=== PATIENT | male | born 1990 | race African-American/Black ===

== ENCOUNTER 2020-05-08 03:32 | Emergency (ER) | payer SELFPAY ==
[~2020-05-08] VITALS: Ht 188 cm; Wt 86.2 kg
--- NOTE | 2020-05-08 03:53 | Emergency Room Report ---
History of Present Illness General Chief Complaint: Medical Clearance Source: Patient Present Illness HPI The patient presents complaining of fentanyl withdrawal. He says he has been vomiting for 2 to 3 days. He is occasionally vomited up some bloody material without coffee grounds. Initially it was bilious. He denies any fevers or chills. He complains of 10/10 pain in his stomach. He says he has had normal bowel movements until today there was some diarrhea which was brown in color and not melanotic. He complains about generalized pain that is 5/10 at this time. He also has some epigastric discomfort that similar. The epigastric discomfort does not radiate. Not having access to his opiates the patient feels anxious. He states he uses about a gram a day. He last used 5 days ago. Patient denies exposure to Covid positive contacts however he is incarcerated at this time. No sore throat, chest pain, palpitations, shortness of breath, rashes, visual changes, dizziness, headache. Patient has a history of hepatitis C. Patient denies HIV. Allergies: Coded Allergies: No Known Allergies (Unverified , 05/08/20) COVID-19 Screening Contact w/high risk pt: No Experienced COVID-19 symptoms?: No COVID-19 Testing performed CONTACT CENTER REPRESENTATIVE: No Patient History Past Medical History: see triage record, other - hep c Social History: Reports: drug use - Fentanyl Social History Narrative Incarcerated Reviewed Nursing Documentation: PMH: Agreed; PSxH: Agreed Nursing Documentation-PM Past Medical History: No Stated History Physical Exam Vital Signs Date Time Temp Pulse Resp B/P (MAP) Pulse Ox O2 Delivery O2 Flow Rate FiO2 05/08/20 03:34 98.4 96 20 139/86 (103) 98 Room Air Medical Decision Making Diagnostic Impression: Primary Impression: Opiate withdrawal Additional Impression: Gastritis Qualified Codes: K29.01 - Acute gastritis with bleeding ER Course Patient presents with 3 days of vomiting and epigastric pain complaining of fentanyl withdrawal. Differential includes opiate withdrawal, gastritis, esophageal varices, peptic ulcer disease, Leola-Osei tear amongst others. Patient's vital signs are stable at this time. Patient's vital signs also do not support the use of clonidine. Skin color is good and laboratory is not essential at this time. Patient will be treated symptomatically with Phenergan IM, Pepcid p.o. and Tylenol with codeine p.o. Discussed with patient we are unable to prescribe or give Suboxone. Patient understands this. He is appearing to for charge tomorrow and the potential is to take him to the [facility]. Patient tolerated medication and was improved without vomiting. Patient stable for outpatient observation and treatment as well as incarceration. Last Vital Signs Date Time Temp Pulse Resp B/P (MAP) Pulse Ox O2 Delivery O2 Flow Rate FiO2 05/08/20 04:20 98.4 20 139/86 98 Room Air 05/08/20 04:00 96 Status: improved Disposition: LAW ENFORCEMENT IN [facility]UST Condition: Improved Scripts Acetaminophen (Tylenol) 325 Mg Tablet 650 MG ORAL Q6H PRN for Prn Pain/Headache/Temp > 101, #20 TAB 0 Refills Prov: Slade Sales MD 05/08/20 Naloxone HCl (Narcan) 4 Mg [place] 4 MG NS NEEDED, #1 SPRAY Prov: Slade Sales MD 05/08/20 Hydroxyzine Pamoate (VISTARIL) 25 Mg Capsule 25 MG PO Q8HR, #10 CAP Prov: Slade Sales MD 05/08/20 Famotidine* (Pepcid 20mg tablet*) 20 Mg Tablet 20 MG ORAL DAILY for Gerd, #14 TAB 0 Refills Prov: Slade Sales MD 05/08/20 Ondansetron Odt* (ZOFRAN ODT*) 4 Mg Tab.rapdis 4 MG BC EVERY 8 HOURS, #10 TAB 0 Refills Prov: Slade Sales MD 05/08/20 Referrals: NOT CHOSEN IPA/,REFERRING (PCP) Slade Sales MD May 08, 2020 03:53
[2020-05-08] MEDS ORDERED: FAMOTIDINE20 MG ORAL (03:57)
[2020-05-08] MEDS ORDERED: NARCAN4 MG NS (03:57)
[2020-05-08] MEDS ORDERED: TYLENOL325 MG ORAL (03:57)
[2020-05-08] MEDS ORDERED: ONDANSETRON ODT4 MG BC (03:57)
[2020-05-08] MEDS ORDERED: VISTARIL25 M1 PO (03:57)
--- NOTE | 2020-05-08 04:00 | NUR ---
ED Nurse Note: Pt brought in by [employer] for medical clearance, pt has c/o "Im withdrawing from Fentanyl and im nauseated", no emesis or abdominal pain, no sob or labored breathing and pt denies chest pain or any other complaints, pt is calm and cooperative, officer with pt.
[2020-05-08] MEDS: Tylenol #3 tab (300mg/30mg) ORAL ONE (04:10)
[2020-05-08 04:20] VITALS: BP 139/86
--- NOTE | 2020-05-08 04:20 | NUR ---
ER DISCHARGE NOTE: Patient is cleared to be discharged per ERMD, pt is aox4, on room air, with stable vital signs. pt was given dc instructions, pt and officer was able to verbalize understanding, pt id band removed without complications. pt is able to ambulate with steady gait. pt took all belongings.
== END 2020-05-08 04:22 ==
LOC: EMR 03:38
DX: F11.23 Opioid dependence with withdrawal (principal); K29.01 Acute gastritis with bleeding; Z86.19 Personal history of other infectious and parasitic diseases
CPT/HCPCS: 96372; 99283; J2550